=== PATIENT | male | born 1940 | race Caucasian/White ===

== ENCOUNTER → 2017-09-15 | Outpatient (CLI) | payer MEDICARE ==
[~2017-09-15] MED LIST: ASPI325T17 PO; CLOP75TA52 PO; METO-95 PO; OMEP20CA9 PO; ROSU10TA PO
== END | disposition home or self-care (01) ==
LOC: CVU 09:43
PROVIDERS: ATTEND Internal Medicine Cardiovascular Disease
DX: I65.23 Occlusion and stenosis of bilateral carotid arteries (principal); I34.0 Nonrheumatic mitral (valve) insufficiency; I48.0 Paroxysmal atrial fibrillation; I10 Essential (primary) hypertension
CPT/HCPCS: 93306; 93880

== ENCOUNTER → 2020-03-26 | Outpatient (CLI) | payer MEDICARE ==
[~2020-03-26] MED LIST changes: -ROSU10TA PO; +ROSU10TA2 PO
== END | disposition home or self-care (01) ==
LOC: LAB 06:58
PROVIDERS: ATTEND Urology
DX: C61 Malignant neoplasm of prostate (principal)
CPT/HCPCS: 36415; 84153

== ENCOUNTER 2020-05-07 10:47 | Emergency (ER) | payer MEDICARE ==
[~2020-05-07] VITALS: Ht 182.9 cm; Wt 79.8 kg
--- NOTE | 2020-05-07 11:31 | NUR ---
"HERE FOR IRREGULAR HEARTBEAT" X4 DAYS. DENIES PAIN. SLIGHT LIGHTHEADEDNESS. HX AFIB, "SLOW HEART RATE". "DUE FOR A PACEMAKER" CARDIAC MONITORING APPLIED: AFIB, RATE UPPER 70'S TO LOW 100'S. RESP EVEN & UNLABORED, SPEECH CLEAR, SKIN WNL. LAST ORAL INTAKE: 829. LAST BM: TODAY.
[2020-05-07] MEDS ORDERED: TAMS-11 PO (11:43)
[2020-05-07 12:23] LABS: BASOPHILS % (AUTO) 1 % (0-1); EOSINOPHILS % (AUTO) 1 % (1-7); LYMPHOCYTES % (AUTO) 33 % (22-44); MEAN CORPUSCULAR HGB CONC 33.5 g/dL (33.2-36.2); MEAN PLATELET VOLUME 7.5 fL (7.4-10.4); MONOCYTES % (AUTO) 9 % (2-9); NEUTROPHILS % (AUTO) 57 % (42-75); PLATELET COUNT 229 x10^3/uL (130-400); RED BLOOD COUNT 4.67 x10^6/uL (4.38-5.82); RED CELL DISTRIBUTION WIDTH 13.3 % (9.4-14.8)
[2020-05-07 12:32] LABS: ALBUMIN 3.7 g/dL (3.4-5.0); CREATININE 1.11 mg/dL (0.7-1.3); MD NO
[2020-05-07 12:37] LABS: TROPONIN I < 0.015 ng/mL (0.000-0.045)
[2020-05-07 13:01] LABS: ANION GAP 6 mmol/L (5-15); CHLORIDE 111 mmol/L (98-107)
--- NOTE | 2020-05-07 13:19 | NUR ---
RESTING QUIETLY ON GURNEY; CURRENTLY PAIN-FREE. MONITOR: AFIB
--- NOTE | 2020-05-07 14:07 | NUR ---
RESTING QUIETLY ON GURNEY; AWARE OF CARDIOLOGY PAGE. PT STATES HE WANTS TO BE DISCHARGED.
[2020-05-07 14:30] VITALS: BP 113/69
== END 2020-05-07 15:07 | disposition home or self-care (01) ==
LOC: ED 15:00
DX: R00.2 Palpitations (principal); I48.91 Unspecified atrial fibrillation; R07.89 Other chest pain; E78.5 Hyperlipidemia, unspecified; I48.92 Unspecified atrial flutter
CPT/HCPCS: 36415; 71045; 80048; 82040; 84484; 85025; 93005; 99285